=== PATIENT | female | born 1975 | race Caucasian/White ===

== ENCOUNTER 2023-11-25 09:04 | Emergency (ER) | payer BC, SELFPAY ==
[2023-11-25 09:06] VITALS: BP 132/94; PULSE 101; RESP 16; TEMP 35.9; O2SAT 96; BMI 31.4
[2023-11-25 09:11] LABS: Glucose, Whole Blood 385 mg/dL (60-115)
--- NOTE | 2023-11-25 09:16 | ED.GENADULT ---
HPI - General Adult General Chief complaint: Recheck/Abnormal Lab/Rx Stated complaint: high blood sugar Time Seen by Provider: 11/25/23 09:15 Source: patient Mode of arrival: ambulatory Limitations: no limitations History of Present Illness HPI narrative: 48-year-old female presents with concerns that she had 1 high blood pressure reading at home, 415 this morning after waking up she has a newly diagnosed diabetic as of 3 days ago, she was told that if her sugar was greater than 400 she should go to the emergency department for evaluation. She denies any symptoms at this time. No nausea, vomiting, abdominal pain, fevers, chills, headache, vision changes, dizziness, chest pain, shortness of breath, changes in bowel habits or urination. She is scheduled to meet with the nurse today to teach her how to administer insulin. Related Data Allergies Allergy/AdvReac Type Severity Reaction Status Date / Time metoclopramide [From REGLAN] Allergy Unknown UNKNOWN Verified 11/25/23 09:10 prochlorperazine Allergy Unknown UNKNOWN Verified 11/25/23 09:10 [From COMPAZINE] Review of Systems Review of Systems: Yes all other systems are reviewed and are negative [facility] Past Medical History Attestation statement: The following information was validated with the patient. Source: old records reviewed and nursing notes reviewed Social History Social History Unable to assess alcohol history related to: Unable to respond Alcohol intake: never Smoked in Last 30 Days: No Use of substances other than those prescribed or required for medical reasons: No Advance Directives: No Physical Exam ED Vital Signs: Vital Signs - 24 hr 11/25/23 09:06 11/25/23 10:22 Temperature 96.6 F L Pulse Rate 101 H 75 Respiratory Rate 16 18 Blood Pressure 132/94 H 105/72 Pulse Oximetry 96 95 Oxygen Delivery Method Room Air Room Air BMI result Body Mass Index 31.4 vss Appearance: Alert.? Oriented X3.? No acute distress.? Head: Normocephalic, atraumatic, no step-offs or deformities Eyes: Pupils equal, round and reactive to light.? ENT: Pharynx normal.? Neck: Normal inspection.? Neck supple.? CVS: Normal heart rate and rhythm.? Pulses normal.? Respiratory: No respiratory distress.? Breath sounds normal.? Abdomen: Soft and nontender.? Skin: Skin warm and dry.? Normal skin color.? Normal skin turgor.? Extremities: No lower extremity edema.? No calf ttp. 5/5 strength to bilateral upper and lower extremities Neuro: Oriented X 3.? No motor deficit.? No sensory deficit. CN 2-12 intact Course Reevaluation(s) Reevaluation #1: CBC unremarkable. Elevated point of care 385. Chemistry pending. VBG with no acidosis. I do not suspect diabetic ketoacidosis. Patient will be given insulin and then discharged home. Time: 10:26 Reevaluation #2: Chemistry with slightly low sodium 133 patient tolerating p.o. fluids will encourage p.o. hydration. Patient's random glucose 435 insulin ordered at this time. Transaminases slightly elevated and 2-1 fashion possibly 2nd to chronic alcohol abuse. Again no anion gap, no acidosis, negative beta hydroxybutyrate history and physical exam likely just hyperglycemia unlikely DKA, HHS. Patient asymptomatic. Will have her follow-up with PCP. Patient does have insulin at home and she has having a diabetic nurse teacher how to self administer. Plan at this time repeat point of care insure its going down and discharge patient home Time: 10:54 Reevaluation #3: Patient's sugar went down to 190. Patient feeling well no symptoms. Medications Administered Generic Name Dose Route Start Last Admin Trade Name Freq PRN Reason Stop Dose Admin Sodium Chloride 1,000 mls @ 999 mls/hr 11/25/23 11:45 11/25/23 11:49 Ns IV 11/25/23 12:45 999 mls/hr .[id number] VICTORIA Administration Discontinued Medications Generic Name Dose Route Start Last Admin Trade Name Freq PRN Reason Stop Dose Admin Insulin Human Lispro 8 unit 11/25/23 10:25 11/25/23 10:58 Insulin Lispro 100 Unit/Ml 3 Ml Vial SUBCUT 11/25/23 10:26 8 unit ONCE ONE Administration Insulin Human Lispro 5 unit 11/25/23 11:38 11/25/23 11:52 Insulin Lispro 100 Unit/Ml 3 Ml Vial SUBCUT 11/25/23 11:39 5 unit ONCE ONE Administration Medical Decision Making Medical Decision Making [facility] Narrative: 48-year-old female presents with elevated blood sugar reading at home, newly diagnosed diabetic scheduled to see provider today to start medications. Asymptomatic. Physical examination benign History and physical exam concerning for diabetes/isolated elevated blood pressure reading. Unlikely DKA, HHS. Will rule out metabolic derangements. Plan at this time labs, urine, beta hydroxybutyrate and VBG Differential Diagnosis Differential Diagnoses: The differential diagnosis associated with the presentation includes History and physical exam concerning for diabetes/isolated elevated blood pressure reading. Unlikely DKA, HHS. Will rule out metabolic derangements. Admission/Observation Consideration of admission/observation: Escalation of care including admission/observation considered Unlikely Lab Data MDM Lab Attestation statement: I reviewed the patient's lab results. 11/25/23 09:47 11/25/23 09:47 Labs: Lab Results 11/25/23 11/25/23 11/25/23 Range/Units 09:08 09:47 10:03 WBC 5.7 (4.8-10.8) X10*3/uL RBC 4.75 (4.20-5.50) X10*6/uL Hgb 14.1 (12.0-16.0) g/dl Hct 38.7 (37.0-47.0) % MCV 81.5 (80.0-98.0) fL MCH 29.7 (27.0-33.0) pg MCHC 36.4 H (31.0-35.0) g/dl RDW 13.2 (11.0-16.0) % Plt Count 165 (160-400) X10*3/uL MPV 9.3 L (9.4-12.3) fL Immature Gran % (Auto) 0.3 (0.0-0.4) % Neut % (Auto) 63.4 (45-73) % Lymph % (Auto) 28.7 (20-40) % [place] % (Auto) 6.6 (2-11) % Eos % (Auto) 0.5 (0-4) % Baso % (Auto) 0.5 (0-2) % Lymph # (Auto) 1.6 (1.2-4.9) X10*3/uL [place]aton # (Auto) 0.4 (0.1-1.2) X10*3/uL Eos # (Auto) 0.0 (0.0-0.4) X10*3/uL Baso # (Auto) 0.0 (0.0-0.2) X10*3/uL Abs Immat Gran (auto) 0.02 (0.00-0.03) X10*3/uL Absolute Neuts (auto) 3.6 (2.0-8.3) x10*3/uL Absolute Nucleated RBC 0.000 (0.0-0.012) X10*3/uL Nucleated RBC % (auto) 0.0 (0.0-0.2) /100WBC VBG pH 7.44 H (7.32-7.43) VBG pCO2 38 mmHg VBG pO2 52 mmHg VBG HCO3 26 (22-26) mmol/L VBG O2 Saturation 82.0 % VBG Base Excess 2.4 mmol/L Sodium 133 L (135-145) mmol/L Potassium 3.9 (3.3-5.1) mmol/L Chloride 97 (96-108) mmol/L Carbon Dioxide 25 (22-29) mmol/L Anion Gap 15 (12-20) BUN 13 (9-16) mg/dL Creatinine 1.10 (0.5-1.4) mg/dL Estim Creat Clear Calc 65.9 Estimated GFR 53 POC Glucose 385 H* (60-115) mg/dL Random Glucose 435 H* (60-115) mg/dL Calcium 9.7 (8.4-10.2) mg/dL Total Bilirubin 0.9 (0.0-1.0) mg/dL AST 47 H (5-31) U/L ALT 101 H (0-31) U/L Alkaline Phosphatase 117 (39-117) U/L Total Protein 7.5 (6.5-8.0) g/dL Albumin 4.3 (3.5-5.0) g/dL Beta-Hydroxybutyrate 0.20 (0.02-0.27) mmol/L Urine Color Urine Appearance Urine pH (5.0-9.0) Ur Specific [place] (1.005-1.025) Urine Protein (Neg-Trace) mg/dL Urine Glucose (UA) (Negative) mg/dL Urine Ketones (Negative) mg/dL Urine Blood (Negative) Urine Nitrite (Negative) Ur Leukocyte Esterase (Negative) Urine RBC (0-2) /HPF Urine WBC (0-5) /HPF Ur Squamous Epith Cells (0-2) /HPF Urine Bacteria (None Seen) Hyaline Casts (0-2) /LPF 11/25/23 11/25/23 11/25/23 Range/Units 10:22 11:36 12:22 WBC (4.8-10.8) X10*3/uL RBC (4.20-5.50) X10*6/uL Hgb (12.0-16.0) g/dl Hct (37.0-47.0) % MCV (80.0-98.0) fL MCH (27.0-33.0) pg MCHC (31.0-35.0) g/dl RDW (11.0-16.0) % Plt Count (160-400) X10*3/uL MPV (9.4-12.3) fL Immature Gran % (Auto) (0.0-0.4) % Neut % (Auto) (45-73) % Lymph % (Auto) (20-40) % Eaton % (Auto) (2-11) % Eos % (Auto) (0-4) % Baso % (Auto) (0-2) % Lymph # (Auto) (1.2-4.9) X10*3/uL Eaton # (Auto) (0.1-1.2) X10*3/uL Eos # (Auto) (0.0-0.4) X10*3/uL Baso # (Auto) (0.0-0.2) X10*3/uL Abs Immat Gran (auto) (0.00-0.03) X10*3/uL Absolute Neuts (auto) (2.0-8.3) x10*3/uL Absolute Nucleated RBC (0.0-0.012) X10*3/uL Nucleated RBC % (auto) (0.0-0.2) /100WBC VBG pH (7.32-7.43) VBG pCO2 mmHg VBG pO2 mmHg VBG HCO3 (22-26) mmol/L VBG O2 Saturation % VBG Base Excess mmol/L Sodium (135-145) mmol/L Potassium (3.3-5.1) mmol/L Chloride (96-108) mmol/L Carbon Dioxide (22-29) mmol/L Anion Gap (12-20) BUN (9-16) mg/dL Creatinine (0.5-1.4) mg/dL Estim Creat Clear Calc Estimated GFR POC Glucose 375 H* 290 H (60-115) mg/dL Random Glucose (60-115) mg/dL Calcium (8.4-10.2) mg/dL Total Bilirubin (0.0-1.0) mg/dL AST (5-31) U/L ALT (0-31) U/L Alkaline Phosphatase (39-117) U/L Total Protein (6.5-8.0) g/dL Albumin (3.5-5.0) g/dL Beta-Hydroxybutyrate (0.02-0.27) mmol/L Urine Color Yellow Urine Appearance Cloudy Urine pH 5.5 (5.0-9.0) Ur Specific [place] 1.025 (1.005-1.025) Urine Protein Negative (Neg-Trace) mg/dL Urine Glucose (UA) >=1000 H (Negative) mg/dL Urine Ketones Negative (Negative) mg/dL Urine Blood Negative (Negative) Urine Nitrite Negative (Negative) Ur Leukocyte Esterase Trace H (Negative) Urine RBC 0-2 (0-2) /HPF Urine WBC 6-10 H (0-5) /HPF Ur Squamous Epith Cells 11-20 (0-2) /HPF Urine Bacteria Trace (None Seen) Hyaline Casts 0-2 (0-2) /LPF Critical Care Time Critical Care Time Critical Care Time: No Discharge Plan Discharge Clinical Impression: Hyperglycemia Patient Disposition: Home, Self-Care Instructions: Diabetic Hyperglycemia (ED) Additional Instructions: Take your medications as prescribed. If you were prescribed antibiotics today, it is important that you take your medication to their entirety, do not skip any doses, do not finish them early. Follow-up with your primary care provider this week. Return to the emergency department with new or worsening symptoms. Such as fevers, chills, chest pain, shortness of breath, nausea, vomiting, dizziness, headache, vision changes, lethargy In case of emergency call 911 Ensure you follow-up with your PCP and your extension educator Referrals: Ana Luisa Bales MD [Primary Care Provider] - 2 days Stand Alone Forms: Work/School Release Interventions: ED Discharge Assessment Last Done: 11/25/23 12:38
[2023-11-25 10:05] LABS: MANUAL DIFF FLAG NO
[2023-11-25 10:09] LABS: Basophils Percent Auto 0.5 % (0-2); Eosinophils Percent Auto 0.5 % (0-4); Hematocrit 38.7 % (37.0-47.0); Hemoglobin 14.1 g/dl (12.0-16.0); Imm Gran Abs Auto 0.02 X10*3/uL (0.00-0.03); Imm Gran Pct Auto 0.3 % (0.0-0.4); Lymphocytes Absolute Auto 1.6 X10*3/uL (1.2-4.9); Lymphocytes Percent Auto 28.7 % (20-40); Mean Corpuscular HGB Conc 36.4 g/dl (31.0-35.0); Mean Corpuscular Hemoglobin 29.7 pg (27.0-33.0); Mean Corpuscular Volume 81.5 fL (80.0-98.0); Mean Platelet Volume 9.3 fL (9.4-12.3); Monocytes Absolute Auto 0.4 X10*3/uL (0.1-1.2); Monocytes Percent Auto 6.6 % (2-11); Neutrophils Absolute Auto 3.6 x10*3/uL (2.0-8.3); Neutrophils Percent Auto 63.4 % (45-73); Platelet Count 165 X10*3/uL (160-400); Red Blood Count 4.75 X10*6/uL (4.20-5.50); Red Cell Distribution Width 13.2 % (11.0-16.0); White Blood Count 5.7 X10*3/uL (4.8-10.8)
[2023-11-25 10:11] LABS: VBG Base Excess 2.4 mmol/L; VBG HCO3 26 mmol/L (22-26); VBG pCO2 38 mmHg; VBG pH 7.44 (7.32-7.43); VBG pO2 52 mmHg
[2023-11-25 10:12] LABS: Venous Blood Gas Refer to POC result
[2023-11-25 10:22] VITALS: BP 105/72; PULSE 75; RESP 18; O2SAT 95
[2023-11-25 10:35] LABS: Appearance Urine Cloudy; Color Urine Yellow; Glucose Urine UA >=1000 mg/dL (Negative); Leukocyte Esterase Urine Trace (Negative); Nitrite Urine Negative (Negative); PH 5.5 (5.0-9.0); Specific Gravity - Urine 1.025 (1.005-1.025); UMIC TRIGGER UACC YES; Urine Blood Negative (Negative); Urine Ketones Negative (Negative); Urine Protein Negative (Neg-Trace)
[2023-11-25 10:41] LABS: Bacteria Urine Trace (None Seen); Hyaline Casts Urine 0-2 /LPF (0-2); RBC Urine 0-2 /HPF (0-2); UACC Culture Trigger YES
[2023-11-25 10:50] LABS: Alanine Aminotransferase 101 U/L (0-31); Albumin Level 4.3 g/dL (3.5-5.0); Alkaline Phosphatase 117 U/L (39-117); Anion Gap 15 (12-20); Aspartate Amino Transferase 47 U/L (5-31); Bilirubin Total 0.9 mg/dL (0.0-1.0); Blood Urea Nitrogen 13 mg/dL (9-16); Calcium 9.7 mg/dL (8.4-10.2); Carbon Dioxide 25 mmol/L (22-29); Chloride 97 mmol/L (96-108); Creatinine Clr Calc Pharmacy 65.9; Estimated Glomerular Filt Rate 53; Glucose Random 435 mg/dL (60-115); Potassium 3.9 mmol/L (3.3-5.1); Sodium 133 mmol/L (135-145); Total Protein 7.5 g/dL (6.5-8.0)
[2023-11-25] MEDS: Insulin Lispro 100 UNIT/ML 3 ML VIAL 8 UNIT SUBCUT (10:58)
[2023-11-25 11:40] LABS: Glucose, Whole Blood 375 mg/dL (60-115)
[2023-11-25] MEDS: 0.9 % Sodium Chloride 1,000 ML 999 ML IV (11:49)
[2023-11-25] MEDS: Insulin Lispro 100 UNIT/ML 3 ML VIAL SUBCUT (11:52)
[2023-11-25 12:25] LABS: Glucose, Whole Blood 290 mg/dL (60-115)
== END 2023-11-25 12:39 | disposition home or self-care (01) ==
PROVIDERS: Physician Assistant; Emergency Provider Emergency Medicine Emergency Medical Services; PCP Internal Medicine
DX: E11.65 Type 2 diabetes mellitus with hyperglycemia (principal)
CPT/HCPCS: 36415; 80053; 81001; 82010; 82803; 82947; 85025; 87086; 87147; 99283; 99284